=== PATIENT | female | born 1965 | race Caucasian/White ===

== ENCOUNTER → 2017-06-12 | Day surgery (SDC) | payer OTHER ==
[2017-06-11 12:16] LABS: BASOPHILS # (AUTO) 0.1 (0.0-0.1); BASOPHILS % 1.4 % (0.0-1.0); HEMATOCRIT 41.3 % (34.2-44.1); HEMOGLOBIN 14.2 g/dL (12.0-16.0); LYMPHOCYTES # (AUTO) 2.2 (1.0-3.2); LYMPHOCYTES % 44.1 % (18.0-39.1); MEAN CORPUSCULAR HEMOGLOBIN 31.4 pg (28-32); MEAN CORPUSCULAR HGB CONC 34.4 g/dL (31-35); MEAN CORPUSCULAR VOLUME 91.4 fL (81-99); MONOCYTES # (AUTO) 0.4 (0.2-0.8); MONOCYTES % 8.9 % (4.4-11.3); NEUTROPHILS # (AUTO) 2.3 (2.1-6.9); NEUTROPHILS % 45.4 % (38.7-80.0); PLATELET COUNT 285 x10e3/uL (140-360); RED BLOOD COUNT 4.52 x10e6/uL (3.6-5.1); RED CELL DISTRIBUTION WIDTH 11.8 % (11.7-14.4)
[2017-06-11 12:27] LABS: ANION GAP 14.2 mmol/L (8-16); BLOOD UREA NITROGEN 10 mg/dL (7-26); BUN/CREATININE RATIO 14 (6-25); CALCIUM 10.2 mg/dL (8.4-10.2); CARBON DIOXIDE 26 mmol/L (22-29); CHLORIDE 103 mmol/L (98-107); CREATININE, SERUM 0.69 mg/dL (0.57-1.11); EST GLOMERULAR FILTRATION RATE > 60 ML/MIN (60-); GLUCOSE 92 mg/dL (74-118); POTASSIUM 4.2 mmol/L (3.5-5.1); SODIUM 139 mmol/L (136-145)
[~2017-06-12] MED LIST: ADVIL PO; BELLADONNA/OPIUM 60 MG SUPP PR ONE; DEXAMETHASONE SOD PHOS INJ 4 MG/ML VIAL ONE; FENTANYL CITRATE/PF 100MCG/2 ML INJ ONE; GENTAMICIN 80MG/NS 100 ML 100 ML IV ONE; IBUPROFEN PO; IOPAMIDOL 610MG/1ML 300 MG/ML VIAL IV ONE; LEVOFLOXACIN 500MG/D5W 100ML 100 ML IV ONE; LIDOCAINE HCL 2% LOCAL INJ 5 ML SDV VIAL INJ ONE; MIDAZOLAM HCL 2 MG/2 ML VIAL ONE; NORCO 10MG-325MG1 EA PO; NYQUIL D COLD177 ML; ONDANSETRON HCL INJ 2 MG/ML VIAL ONE; OXYTROL1 EA TOP; PROPOFOL IV EMULSION 10 MG/ML 20 ML VIAL ONE; RELIEF FACTOR PO; SEVOFLURANE INHAL SOLN 250 ML PEN BTL ONE; TYLENOL; VICODIN; Z QUIL PO
--- NOTE | 2017-06-12 07:48 | Diagnostic Imaging Report ---
PROCEDURE:ABDOMEN-1VIEW (KUB) TECHNIQUE:Supine AP abdomen totaling 3 radiographs INDICATION:Preoperative evaluation for stent manipulation. COMPARISON:[facility], DX, RETROGRADE PYELOGRAM, 08/17/2016, 7:07. FINDINGS: See conclusion. CONCLUSION: 1. 2 right double-J ureteral stents with loop formed in the urinary bladder and renal pelvis. No stent encrustation. 2. No evidence of renal stone or ureteral calcification. 3. No evidence of organomegaly or ascites. 4. Right lower quadrant stimulation device. Dictated by: Robin Haas M.D. on 06/12/2017 at 7:56 Electronically approved by: Robin Haas M.D. on 06/12/2017 at 7:56
--- NOTE | 2017-08-13 06:20 | Operative Report ---
DATE OF PROCEDURE: June 12, 2017 PREOPERATIVE DIAGNOSES 1. Right ureteral stricture. 2. Right hydronephrosis due to stricture. 3. Two right-sided indwelling ureteral stents. 4. History of urolithiasis. 5. Atrophic (senile) vaginitis. POSTOPERATIVE DIAGNOSES OPERATIONS PERFORMED 1. Cystourethroscopy with complicated removal of 2 separate right-sided indwelling ureteral stents (separate procedure performed for the diagnosis of stents done with separate scope). 2. Cystourethroscopy with calibration and dilation of right ureteral stricture (separate procedure performed for the diagnosis of stricture). 3. Urological services for supervision and interpretation of stricture dilation. 4. Cystourethroscopy with insertion of 2 separate right-sided indwelling ureteral stents (separate procedure performed to relieve the hydronephrosis). 5. Interpretation of retrograde ureteropyelography. 6. Supervision of fluoroscopy. No radiologist present. 7. Pelvic examination under anesthesia. 8. Cystourethroscopy with left ureteral catheterization and retrograde ureteropyelography (separate procedure performed for the history of urolithiasis). ANESTHESIA: General. COMPLICATIONS: None. 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 The patient has had chronic hydronephrosis and is due for stent change. She is aware the risks of bleeding, infection, injury to adjacent structures, need for additional procedures, and elected proceed. OPERATIVE PROCEDURE IN DETAIL: Informed consent was verified. Conchita Marroquin was properly identified and taken to the operating room and placed on the cystoscopy table in the supine position. Anesthesia was uneventfully begun. The patient was then carefully and gently repositioned in the dorsal lithotomy position with all pressure points well-padded. Her genitalia were prepared and draped in the usual sterile fashion. The 22.5-Sudanese cystoscope sheath with obturator in place was atraumatically inserted into the patient's urethra and the bladder was drained. Panendoscopy of the urinary bladder revealed 2 stents emerging from the right ureteral orifice that were minimally encrusted. There are no suspicious lesions. Mild erythema was noted in the region around where the stents rested. A guidewire was then placed into the right ureter, and was only able to be advanced partially and not past the ureteral stricture. We grasped the stents and extracted them atraumatically and discarded them. The guidewire was then able to pass into the level of the patient's kidney. A double lumen ureteral catheter was utilized as a coaxial dilator sheath. It was gently passed over the guidewire to the level of the proximal ureter. Thus, we dilated the ureteral stricture. Contrast was injected and then a secondary guidewire was placed. With cystoscopic and fluoroscopic guidance, 2 separate indwelling ureteral stents were placed on the right hand side. Both coiled in the patient's kidney, as well as the patient's bladder. The retaining sutures were removed. A ureteral catheter was used to cannulate the left ureter and retrograde ureteropyelograms were performed. Interpretation of retrograde ureteropyelography. Contrast was instilled in a retrograde fashion bilaterally. The left side was unremarkable. There were no tumors. No stones. No diverticula. Unobstructed drainage was observed fluoroscopically. The InterStim neurostimulator could be seen in the right S3 region. The right side was initially consistent with hydroureteronephrosis, but with placement of the new stents, there was almost immediate decompression of the collecting system on the right hand side. The patient's bladder was then drained. The cystoscope was withdrawn. Pelvic examination under anesthesia revealed atrophic vaginitis. No abnormal palpable pelvic masses could be appreciated. There were no obvious mucosal lesions. The patient was uneventfully reversed from anesthesia and taken to the recovery room in stable condition. There no complications to the procedure. The patient tolerated the procedure well. Explicit postoperative instructions were given. Will follow the patient up in the office at which point in time we will check the impedance over InterStim implant and reprogram it as needed. Job#: [id number] [place]
== END | disposition home or self-care (01) ==
LOC: OR 07:47
PROVIDERS: ATTEND Urology
DX: N13.1 Hydronephrosis with ureteral stricture, not elsewhere classified (principal); Z46.6 Encounter for fitting and adjustment of urinary device; N95.2 Postmenopausal atrophic vaginitis; Z01.810 Encounter for preprocedural cardiovascular examination; Z01.812 Encounter for preprocedural laboratory examination; Z87.442 Personal history of urinary calculi; Z85.41 Personal history of malignant neoplasm of cervix uteri
CPT/HCPCS: 36415; 52332; 52341; 74000; 74420; 80048; 83970; 84550; 85025; 87086; 93005; C1874; J1100; J1580; J1956; J2001; J2250; J2405; Q9967; C2617

== ENCOUNTER → 2018-04-02 | Day surgery (SDC) | payer OTHER ==
[2018-04-01 13:56] LABS: BASOPHILS # (AUTO) 0.1 (0.0-0.1); BASOPHILS % 1.5 % (0.0-1.0); HEMATOCRIT 40.2 % (34.2-44.1); HEMOGLOBIN 13.4 g/dL (12.0-16.0); LYMPHOCYTES # (AUTO) 1.8 (1.0-3.2); LYMPHOCYTES % 38.9 % (18.0-39.1); MEAN CORPUSCULAR HEMOGLOBIN 31.9 pg (28-32); MEAN CORPUSCULAR HGB CONC 33.3 g/dL (31-35); MEAN CORPUSCULAR VOLUME 95.7 fL (81-99); MONOCYTES # (AUTO) 0.5 (0.2-0.8); NEUTROPHILS # (AUTO) 2.2 (2.1-6.9); NEUTROPHILS % 49.4 % (38.7-80.0); PLATELET COUNT 271 x10e3/uL (140-360); RED CELL DISTRIBUTION WIDTH 11.7 % (11.7-14.4)
[2018-04-01 14:14] LABS: ANION GAP 18.3 mmol/L (8-16); BLOOD UREA NITROGEN 6 mg/dL (7-26); BUN/CREATININE RATIO 9 (6-25); CALCIUM 10.1 mg/dL (8.4-10.2); CARBON DIOXIDE 25 mmol/L (22-29); CHLORIDE 104 mmol/L (98-107); CREATININE, SERUM 0.67 mg/dL (0.57-1.11); EST GLOMERULAR FILTRATION RATE > 60 ML/MIN (60-); GLUCOSE 98 mg/dL (74-118); POTASSIUM 4.3 mmol/L (3.5-5.1); SODIUM 143 mmol/L (136-145)
[~2018-04-02] MED LIST changes: -BELLADONNA/OPIUM 60 MG SUPP PR ONE; +CEFTRIAXONE SOD 1 GM VIAL ONE; -GENTAMICIN 80MG/NS 100 ML 100 ML IV ONE; +GENTAMICIN 80MG/NS 100 ML 200 ML IV ONE; -LEVOFLOXACIN 500MG/D5W 100ML 100 ML IV ONE; +ROCURONIUM BROMIDE 10 MG/ML 5ML VIAL ONE
--- OUTSIDE RECORDS SUMMARY | 2018-04-02 09:06 | XMS REPORT ---
Author Author [facility] Address Unknown Phone Unavailable Care Team Providers Care Clinical Documentation Consultant Name Role Phone TYSHAWN DING Unavailable Unavailable Problems This patient has no known problems. Allergies, Adverse Reactions, Alerts This patient has no known allergies or adverse reactions. Medications This patient has no known medications. Results Test Description Test Time Test Comments Text Results Atomic Results Result Comments ABDOMEN-1VIEW (KUB) [place] [address] Patient Name: ZHANG MCRBIDE MR #: [id number] : 1965 Age/Sex: 51/F Req #: [id number] Adm Physician: Ordered by: TYSHAWN DING MD Report #: [id number] Location: OR Room/Bed: Procedure: [id number] DX/ABDOMEN-1VIEW (KUB) Exam Date: 06/12/17 Exam Time: 724 REPORT STATUS: Signed PROCEDURE: ABDOMEN-1VIEW (KUB) TECHNIQUE: Supine AP abdomen totaling 3 radiographs INDICATION: Preoperative evaluation for stent manipulation. COMPARISON: [facility], DX, RETROGRADE PYELOGRAM, 08/17/2016, 7:07. FINDINGS: See conclusion. CONCLUSION: 1. 2 right double-J ureteral stents with loop formed in the urinary bladder and renal pelvis. No stent encrustation. 2. No evidence of renal stone or ureteral calcification. 3. No evidence of organomegaly or ascites. 4. Right lower quadrant stimulation device. Dictated by: Renee Haas M.D. on 06/12/2017 at 7:56 Electronically approved by: Renee Haas M.D. on 06/12/2017 at 7:56 Dictated By: RENEE HAAS MD 5 Transcribed B y: INFCE on 06/12/17755 COPY TO: TYSHAWN DING MD
--- NOTE | 2018-04-02 10:23 | Diagnostic Imaging Report ---
PROCEDURE:X-RAY ABDOMEN - KUB COMPARISON:06/12/2017. INDICATIONS:PREOPERATIVE XRAY FOR STENT REMOVAL FINDINGS: 2 adjacent right internal ureteral stents are again noted. The proximal locking loops project over the expected region of the right renal pelvis. The distal locking loops project over the pelvis to the right of the midline. No suspicious calcifications project over the renal shadows or expected ureteral courses. Multiple pelvic phleboliths. Atherosclerotic vascular calcifications. Sacral stimulator device is unchanged in position. Bowel gas pattern is nonobstructive. Regional skeletal structures are intact. CONCLUSION: Right internal ureteral stents appropriately positioned without evidence of encrustation. No plain film evidence of urolithiasis. Dictated by: Law Jorge M.D. on 04/02/2018 at 10:31 Electronically approved by: Law Jorge M.D. on 04/02/2018 at 10:31
[2018-04-02 12:07] VITALS: BP 121/73
--- NOTE | 2018-05-22 00:45 | Operative Report ---
DATE OF PROCEDURE: April 02, 2018 PREOPERATIVE DIAGNOSES 1. Right ureteral stricture. 2. Right hydronephrosis due to stricture. 3. Right indwelling ureteral stents x2. 4. Atrophic (senile) vaginitis. POSTOPERATIVE DIAGNOSIS: OPERATIONS PERFORMED 1. Cystourethroscopy with complicated removal of right indwelling ureteral stents (separate procedure performed for the diagnosis of stents). 2. Right cystourethroscopy with dilation of right ureteral stricture (separate procedure performed for the diagnosis of stricture). 3. Urological services for supervision and interpretation of stricture dilation. 4. Cystourethroscopy with insertion of 2 separate right-sided indwelling ureteral stents (separate procedure performed for the diagnosis of the hydronephrosis). 5. Interpretation of retrograde ureteropyelography. 6. Supervision of fluoroscopy. No radiologist present. 7. Pelvic examination under anesthesia. ANESTHESIA: General. COMPLICATIONS: None. CLINICAL SUMMARY: Conchita Marroquin is a 52-year-old woman with complicated urological history. Please refer to prior dictations for more detail. The patient has the preoperative diagnoses above and is brought for the above procedures. She is aware of the risks of bleeding, infection, injury to adjacent structures, need for additional procedures, and she understands she has indwelling ureteral stents that require regular replacement. She understood these risks and elected to proceed. OPERATIVE PROCEDURE IN DETAIL: Informed consent was verified. Conchita Marroquin was properly identified, taken to the operating room, placed on the cystoscopy table in a supine position. Anesthesia was uneventfully begun. The patient was then carefully and gently re-positioned in the dorsal lithotomy position with all pressure points well padded. Her genitalia were prepared and draped in usual sterile fashion. The 22.5-Hungarian cystoscope sheath was inserted in patient's urethra and bladder was drained. Panendoscopy of the urinary bladder revealed no suspicion mucosal lesions. No tumors, no stones, and no diverticula. There were heavy trabeculations noted and there was blanching due to radiation damage. Two stents were emerging from the right ureteral orifice which was laterally and cephalad displaced. A guidewire was then placed alongside one of the stents and up into the ureter and guided to the level of the patient's kidney. The stents were then each grasped and each discarded. The double-lumen ureteral catheter was then placed over the guidewire and utilized as a coaxial dilator sheath. It was placed up to the level of the patient's kidney with some degree of resistance of the distal ureter. Thus, we dilated. We obtained clear hydronephrotic drip. Contrast was injected. A secondary guidewire was placed. With cystoscopic and fluoroscopic guidance, 2 separate indwelling ureteral stents were placed on the right side, coiled in the patient's kidney as well as the patient's bladder. The retaining sutures were removed. Panendoscopy of the urinary bladder revealed some fine sand within the bladder as a result of changing the stents and extruding this fine sand off of these older stents. Interpretation of retrograde ureteropyelography: Contrast was instilled in retrograde fashion over the right hand side. The InterStim lead appeared to be positioned appropriately in the AP plane. There was chronic-appearing hydronephrosis. The stents were in good position, coiled in the patient's kidney as well as the patient's bladder at the end of the case. There was a dilation of the ureter down to the level of the stricture. The new stents were in good position at the end of the case. The patient's bladder was then drained. The cystoscope was withdrawn. Pelvic examination under anesthesia revealed a foreshortened vagina with severe vaginal wall atrophy. No abnormal palpable pelvic masses could be appreciated. The patient was then uneventfully reversed from anesthesia and taken to the recovery room in stable condition. Explicit postop instructions were given. We will follow the patient up in the office at which point in time will undergo InterStim impedance testing. Job#: [id number]
== END | disposition home or self-care (01) ==
LOC: OR 09:00
PROVIDERS: ATTEND Urology
DX: N13.1 Hydronephrosis with ureteral stricture, not elsewhere classified (principal); Z46.6 Encounter for fitting and adjustment of urinary device; Z96.0 Presence of urogenital implants; N95.2 Postmenopausal atrophic vaginitis; N32.89 Other specified disorders of bladder; Z88.0 Allergy status to penicillin; Z01.810 Encounter for preprocedural cardiovascular examination; Z01.812 Encounter for preprocedural laboratory examination; Z85.41 Personal history of malignant neoplasm of cervix uteri; Z92.3 Personal history of irradiation
CPT/HCPCS: 36415; 52332; 52341; 74420; 80048; 85025; 93005; C1758; C2617; J0696; J1100; J1580; J2001; J2250; J2405; J2704; Q9967; 74018

== ENCOUNTER 2018-09-29 06:43 | Observation (INO) | payer OTHER ==
[~2018-09-29] VITALS: Ht 162.6 cm; Wt 59.0 kg
[~2018-09-29 06:43] MED LIST changes: -CEFTRIAXONE SOD 1 GM VIAL ONE; -DEXAMETHASONE SOD PHOS INJ 4 MG/ML VIAL ONE; -FENTANYL CITRATE/PF 100MCG/2 ML INJ ONE; -GENTAMICIN 80MG/NS 100 ML 200 ML IV ONE; -IOPAMIDOL 610MG/1ML 300 MG/ML VIAL IV ONE; -LIDOCAINE HCL 2% LOCAL INJ 5 ML SDV VIAL INJ ONE; -MIDAZOLAM HCL 2 MG/2 ML VIAL ONE; -ONDANSETRON HCL INJ 2 MG/ML VIAL ONE; -PROPOFOL IV EMULSION 10 MG/ML 20 ML VIAL ONE; -ROCURONIUM BROMIDE 10 MG/ML 5ML VIAL ONE; -SEVOFLURANE INHAL SOLN 250 ML PEN BTL ONE
[2018-09-29] MEDS ORDERED: SODIUM CHLORIDE 0.9% 1000ML 1,000 ML IV STA (06:56)
[2018-09-29 07:39] LABS: BASOPHILS # (AUTO) 0.1 (0.0-0.1); BASOPHILS % 1.3 % (0.0-1.0); EOSINOPHILS # (AUTO) 0.1 (0.0-0.4); EOSINOPHILS % 2.7 % (0.0-6.0); HEMATOCRIT 40.6 % (34.2-44.1); HEMOGLOBIN 13.4 g/dL (12.0-16.0); LYMPHOCYTES # (AUTO) 2.1 (1.0-3.2); MEAN CORPUSCULAR HEMOGLOBIN 31.7 pg (28-32); MONOCYTES # (AUTO) 0.5 (0.2-0.8); MONOCYTES % 10.2 % (4.4-11.3); NEUTROPHILS # (AUTO) 1.7 (2.1-6.9); NEUTROPHILS % 38.6 % (38.7-80.0); PLATELET COUNT 295 x10e3/uL (140-360); RED BLOOD COUNT 4.23 x10e6/uL (3.6-5.1); RED CELL DISTRIBUTION WIDTH 12.2 % (11.7-14.4)
[2018-09-29 07:55] LABS: CLARITY,URINE HAZY (CLEAR); COLOR,URINE YELLOW (YELLOW); LEUKOCYTE ESTERASE ,URINE TRACE (NEGATIVE); NITRITE,URINE NEGATIVE (NEGATIVE); PROTEIN,URINE DIPSTICK NEGATIVE (NEGATIVE)
[2018-09-29 07:56] LABS: ALANINE AMINOTRANSFERASE 32 IU/L (0-55); ALBUMIN 3.8 g/dL (3.5-5.0); ALBUMIN/GLOBULIN RATIO 1.4 (0.8-2.0); ALKALINE PHOSPHATASE 68 IU/L (40-150); ANION GAP 11.6 mmol/L (8-16); BLOOD UREA NITROGEN 7 mg/dL (7-26); BUN/CREATININE RATIO 11 (6-25); CALCIUM 9.9 mg/dL (8.4-10.2); CARBON DIOXIDE 25 mmol/L (22-29); CHLORIDE 104 mmol/L (98-107); CREATININE, SERUM 0.66 mg/dL (0.57-1.11); EST GLOMERULAR FILTRATION RATE > 60 ML/MIN (60-); GLUCOSE 104 mg/dL (74-118); MAGNESIUM 2.1 MG/DL (1.3-2.1); POTASSIUM 3.6 mmol/L (3.5-5.1); SODIUM 137 mmol/L (136-145)
[2018-09-29 07:56] LABS: BILIRUBIN,URINE NEGATIVE (NEGATIVE); KETONES,URINE NEGATIVE (NEGATIVE); URINE UROBILINOGEN 0.2 mg/dL (0.2 - 1)
--- NOTE | 2018-09-29 08:05 | Diagnostic Imaging Report ---
EXAM: CT Abdomen and Pelvis WITHOUT contrast INDICATION: Stone protocol. COMPARISON: None. TECHNIQUE: Abdomen and pelvis were scanned utilizing a multidetector helical scanner from the lung base to the pubic symphysis without administration of IV contrast. Absence of intravenous contrast decreases sensitivity for detection of focal lesions and vascular pathology. Coronal and sagittal reformations were obtained. Routine protocol was performed. IV CONTRAST: None. ORAL CONTRAST: Water RADIATION DOSE: Total DLP: 217.4 mGy*cm Estimated effective dose: (DLP x 0.015 x size factor) mSv COMPLICATIONS: None FINDINGS: LOWER THORAX: Bilateral fat-containing Bochdalek hernias. HEPATOBILIARY: No focal hepatic lesions. No biliary ductal dilation. GALLBLADDER: Decompressed. No radio-opaque stones or sludge. No wall thickening. SPLEEN: No splenomegaly. PANCREAS: Limited evaluation without definite abnormality. ADRENALS: No adrenal nodules. KIDNEYS/URETERS: No hydronephrosis. No cystic or solid mass lesions. No stones. There are 2 right internal ureteral stents with the proximal pigtails in the renal pelvis and distal pigtails in the bladder. GI TRACT: No abnormal distention, wall thickening, or evidence of bowel obstruction. Appendix is not clearly identified. There is however no fat stranding or adenopathy in the right lower quadrant to suggest appendicitis. There is an anastomosis at the sigmoid colon. PELVIC ORGANS/BLADDER: The bladder is unremarkable in appearance. Calcified pelvic phleboliths. Radiation fiducial markers in the pelvis. LYMPH NODES: No lymphadenopathy. VESSELS: There are scattered atherosclerotic calcifications in the aorta and branch vessels. PERITONEUM / RETROPERITONEUM: No free air or fluid. BONES: Unremarkable. SOFT TISSUES: Right-sided sacral spinal stimulator. IMPRESSION: No CT evidence of renal or ureteral stone. Two right-sided internal ureteral stents in place as above. Appendix is not clearly identified, however there are no inflammatory changes in the right lower quadrant to suggest appendicitis. Signed by: Dr. La Josue MD on 09/29/2018 8:02 AM
[2018-09-29 08:09] LABS: EPITHELIAL CELLS,URINE MODERATE /LPF; WBC,URINE (MAN) 0-5 /HPF (0-5)
--- NOTE | 2018-09-29 08:09 | Diagnostic Imaging Report ---
Exam: KUB- two views Clinical History: Evaluate two right ureteral stents. Comparison: None. Findings: Two right-sided internal ureteral stents with proximal pigtails overlying the expected location of the right renal pelvis and the distal pigtails overlying the bladder. Right-sided sacral spinal stimulator. Surgical clips project over the pelvis. Nonobstructive bowel gas pattern. No acute osseous abnormality. Impression: No acute radiographic abnormality. Unremarkable position of two right ureteral stents. Signed by: Dr. La Josue MD on 09/29/2018 8:06 AM
[2018-09-29] MEDS ORDERED: BELLADONNA/OPIUM 30 MG SUPP RC ONE (09:00)
[2018-09-29] MEDS ORDERED: SODIUM CHLORIDE 0.9% 1000ML 1,000 ML IV SCH (10:34)
[2018-09-29] MEDS ORDERED: ONDANSETRON HCL INJ 2MG/ML 2ML 2 MG/ML VIAL IV PRN (10:45)
[2018-09-29] MEDS ORDERED: HYDROMORPHONE 2MG/ML 2 MG/ML ML IV ONE (11:00)
[2018-09-29] MEDS ORDERED: ONDANSETRON HCL INJ 2MG/ML 2ML 2 MG/ML VIAL IV ONE (11:00)
--- NOTE | 2018-09-29 11:10 | NUR ---
rec'd report in walking rounds with ambar fernandez
--- NOTE | 2018-09-29 11:10 | NUR ---
Walking rounds with KATINA Haywood. Patient in no distress at this time.
[2018-09-29] MEDS ORDERED: GABAPENTIN 100 MG CAP PO SCH ×2 (15:00→21:00)
--- NOTE | 2018-09-29 16:20 | NUR ---
patient arrived on unit via stretcher, alert and oriented. koffi fisher within reach and bed in lowest position.
[2018-09-29 16:30] VITALS: BP 144/80
[2018-09-29 16:32] VITALS: BP 144/80
[2018-09-29] MEDS: HYDROMORPHONE 2MG/ML 2 MG/ML ML IV PRN ×2 (17:45→20:37)
[2018-09-29 20:00] VITALS: BP 149/81
--- NOTE | 2018-09-29 20:00 | NUR ---
PT IN BED, INITIAL ASSESSMENT COMPLETE, PT STATES PAIN 8/10 TO RIGHT LOWER GROIN, BURNING COMES AND GOES, INTENSE FOR A MOMENT, AT BEDSIDE, CALL LIGHT IN REACH, VS STABLE, NO OTHER NEEDS, IV INFUSING
[2018-09-29] MEDS: GABAPENTIN 300 MG CAP PO SCH (20:36)
--- NOTE | 2018-09-29 23:39 | History and Physical ---
The patient is a 53-year-old with a history of right upper and lower quadrant pain. HISTORY OF PRESENT ILLNESS: Ms. Marroquin with a history of uterine cancer status post brachytherapy and radiation therapy and resection of the bowel, was in usual state of health until the patient about a week to two, started to have some pain which was intensified on movement and pain is described as 10/10. The patient's pain is intractable enough to be sent to emergency room. The patient is here for pain control and also for rule out ureteral etiology of the pain. PAST MEDICAL HISTORY: History of radiation therapy for uterine cancer. The patient had also history of radiation cystitis, urethral strictures, and also history of colon resection status post radiation. The patient has had multiple stent replacement for the same. MEDICATIONS: The patient takes her ibuprofen. The patient also takes Tylenol No.3, but she actually borne through the last one week 30 tablets, which usually does not take place. PAST SURGICAL HISTORY: As mentioned above. ALLERGIES: ALLERGY TO PENICILLIN. SOCIAL HISTORY: No EtOH. No IV drug abuse. No smoking. REVIEW OF SYSTEMS: Negative for chest pain. No shortness of breath. Positive for nausea. No vomiting. No diarrhea. No constipation. No rectal bleeding. No hematochezia. Positive for abdominal pain as mentioned above. PHYSICAL EXAMINATION: GENERAL: The patient is alert and oriented x3, in pain, but better with Dilaudid. VITAL SIGNS: The patient's temperature is 97.6, pulse of 60, respirations of 18, blood pressure is 144/80. HEENT: Normocephalic, atraumatic. No icterus present. CVS: S1, S2 normal. Regular rate and rhythm. ABDOMEN: Nontender, nondistended. Positive for hyperesthesias and paresthesias in the right upper quadrant. The patient has tenderness in the right thoracic spine too. EXTREMITIES: No clubbing, no cyanosis, no edema. LABORATORY VALUES: White count 4.4, hemoglobin of 13.4, and hematocrit of 40.6. Chemistries all within normal limits. EGFR is above 60. Urine, trace blood and trace leukocyte esterase. Microbiology, pending urine cultures. IMAGING STUDIES: The patient had abdominal CT shows appendix is not clearly identified, however, no inflammatory changes in the right lower quadrant to suggest appendicitis. ASSESSMENT: 1. Right upper quadrant pain, probably radicular in nature. The patient will be started on gabapentin 300 mg 3 times a day. Dilaudid to control pain. 2. Intractable pain. MRI of the thoracic and lumbar spine has been ordered. The patient will again continue on hydromorphone. The patient could be discharged tomorrow after MRI depending on the findings. Further recommendation per clinical course. We will continue to monitor the patient along with Dr. Vences. MD ALEXX Reyes/MODL /[id number]
[2018-09-30] VITALS: BP 147/80
[2018-09-30 04:00] VITALS: BP 149/68
[2018-09-30] MEDS: HYDROMORPHONE 2MG/ML 2 MG/ML ML IV PRN (04:30)
[2018-09-30 05:15] LABS: BASOPHILS # (AUTO) 0.1 (0.0-0.1); BASOPHILS % 1.1 % (0.0-1.0); EOSINOPHILS # (AUTO) 0.1 (0.0-0.4); EOSINOPHILS % 2.2 % (0.0-6.0); HEMATOCRIT 34.7 % (34.2-44.1); HEMOGLOBIN 11.5 g/dL (12.0-16.0); LYMPHOCYTES # (AUTO) 2.3 (1.0-3.2); LYMPHOCYTES % 50.3 % (18.0-39.1); MEAN CORPUSCULAR HEMOGLOBIN 32.4 pg (28-32); MEAN CORPUSCULAR HGB CONC 33.1 g/dL (31-35); MEAN CORPUSCULAR VOLUME 97.7 fL (81-99); MONOCYTES # (AUTO) 0.4 (0.2-0.8); MONOCYTES % 9.2 % (4.4-11.3); NEUTROPHILS # (AUTO) 1.7 (2.1-6.9); PLATELET COUNT 240 x10e3/uL (140-360); RED BLOOD COUNT 3.55 x10e6/uL (3.6-5.1)
[2018-09-30 05:44] LABS: ANION GAP 9.8 mmol/L (8-16); BLOOD UREA NITROGEN 6 mg/dL (7-26); BUN/CREATININE RATIO 10 (6-25); CARBON DIOXIDE 26 mmol/L (22-29); CHLORIDE 107 mmol/L (98-107); CREATININE, SERUM 0.63 mg/dL (0.57-1.11); EST GLOMERULAR FILTRATION RATE > 60 ML/MIN (60-); GLUCOSE 101 mg/dL (74-118); POTASSIUM 3.8 mmol/L (3.5-5.1); SODIUM 139 mmol/L (136-145)
[2018-09-30] MEDS ORDERED: ACETAMINOPHEN 325 MG TAB PO PRN (07:00)
[2018-09-30 07:10] VITALS: BP 134/87
--- NOTE | 2018-09-30 07:11 | Progress Note ---
DATE: SUBJECTIVE: The patient has been admitted for right-sided intractable pain. The patient is currently asymptomatic. Pain has been relieved with gabapentin. The patient has pending MRI results. OBJECTIVE: VITAL SIGNS: Temperature is 97.1, pulse of 60, respirations of 22, blood pressure is 149/68, and pulse oximeter 100%. HEENT: Normocephalic and atraumatic. CVS: S1, S2 normal. ABDOMEN: Nontender and nondistended. EXTREMITIES: No clubbing, no cyanosis, no edema. ASSESSMENT: 1. Right-sided flank pain probably radicular in nature. The patient is awaiting MRI. 2. History of multiple urethral stents secondary to hydronephrosis and also for strictures. Does not look like this is urethral related. PLAN: To await MRI. Once the MRI is done, the patient can be discharged home. Gabapentin will be started 300 mg 3 times a day. The patient has been given strict advise on driving with gabapentin. Further recommendation and clinical course as an outpatient. The patient can be discharged once MRI has done. MD ZAIN ReyesJ/MODL /[id number]
[2018-09-30 07:51] VITALS: BP 134/87
[2018-09-30] MEDS: GABAPENTIN 300 MG CAP PO SCH (08:00)
[2018-09-30] MEDS ORDERED: GABAPENTIN300 MG PO (08:39)
--- NOTE | 2018-09-30 08:45 | NUR ---
patient alert and oriented. Discharge instructions given, patient verbalized understanding. IV discontinued at this time, catheter in tact and small dressing applied. Patient to be wheeled from floor to personal auto for sister to drive home.
[2018-09-30] MEDS ORDERED: ONDANSETRON HCL 4 MG ORAL DISINTEGRATING TAB PO PRN (09:00)
== END 2018-09-30 09:29 | disposition home or self-care (01) ==
LOC: ER 06:43 → ERHOLD 16:00 → IMCU 16:20
PROVIDERS: ADMIT Family Medicine; ATTEND Family Medicine
DX: R10.11 Right upper quadrant pain (principal); Z85.42 Personal history of malignant neoplasm of other parts of uterus; Z90.49 Acquired absence of other specified parts of digestive tract; Z88.0 Allergy status to penicillin; Z96.0 Presence of urogenital implants; N39.0 Urinary tract infection, site not specified; N13.30 Unspecified hydronephrosis; N32.81 Overactive bladder; R39.15 Urgency of urination; D64.9 Anemia, unspecified
CPT/HCPCS: 36415 ×2; 74018; 74176; 80048; 80053; 81001; 83735; 85025 ×2; 87086; 99284; G0378 ×2; J1170 ×2; J2405; J7030 ×2

== ENCOUNTER → 2020-10-14 | Day surgery (SDC) | payer BC, OTHER ==
[2020-10-12 11:20] LABS: BASOPHILS # (AUTO) 0.1 (0.0-0.1); BASOPHILS % 1.1 % (0.0-1.0); EOSINOPHILS # (AUTO) 0.9 (0.0-0.4); EOSINOPHILS % 12.3 % (0.0-6.0); HEMATOCRIT 38.3 % (34.2-44.1); HEMOGLOBIN 12.8 g/dL (12.0-16.0); LYMPHOCYTES # (AUTO) 1.8 (1.0-3.2); LYMPHOCYTES % 24.4 % (18.0-39.1); MEAN CORPUSCULAR HEMOGLOBIN 32.1 pg (28-32); MEAN CORPUSCULAR HGB CONC 33.4 g/dL (31-35); MONOCYTES # (AUTO) 0.5 (0.2-0.8); MONOCYTES % 6.8 % (4.4-11.3); PLATELET COUNT 344 x10e3/uL (140-360); RED BLOOD COUNT 3.99 x10e6/uL (3.6-5.1); RED CELL DISTRIBUTION WIDTH 11.6 % (11.7-14.4)
[2020-10-12 11:37] LABS: ANION GAP 14.1 mmol/L (8-16); BLOOD UREA NITROGEN 8 mg/dL (7-26); BUN/CREATININE RATIO 11 (6-25); CALCIUM 9.4 mg/dL (8.4-10.2); CARBON DIOXIDE 29 mmol/L (22-29); CHLORIDE 100 mmol/L (98-107); CREATININE, SERUM 0.75 mg/dL (0.57-1.11); EST GLOMERULAR FILTRATION RATE > 60 ML/MIN (60-); GLUCOSE 94 mg/dL (74-118); POTASSIUM 4.1 mmol/L (3.5-5.1); SODIUM 139 mmol/L (136-145)
[~2020-10-14] MED LIST changes: +B&O 60MG R/S 60 MG SUPP PR ONE; +DEXAMETHASONE SOD PHOS INJ 4 MG/ML VIAL ONE; +DIOVAN80 MG PO; +GABAPENTIN300 MG PO; +GENTAMICIN 80MG/NS 100 ML 200 ML IV ONE; +IOPAMIDOL 300MG/ML 50ML INFUS..BTL IV ONE; +LIDOCAINE HCL 2% LOCAL INJ 5 ML SDV VIAL INJ ONE; +NITROFURANTOIN100 MG PO; +ONDANSETRON HCL INJ 2MG/ML 2ML 2 MG/ML VIAL ONE; +POVIDONE IODINE 0.05% 0.05 % ML PO ONE; +PROPOFOL IV EMULSION 10 MG/ML 20 ML VIAL ONE; +SEVOFLURANE INHAL SOLN 250 ML PEN BTL ONE
[2020-10-14 11:30] VITALS: BP 113/72
== END | disposition home or self-care (01) ==
LOC: OR 07:00
PROVIDERS: ATTEND Urology
DX: N13.1 Hydronephrosis with ureteral stricture, not elsewhere classified (principal); N39.0 Urinary tract infection, site not specified; N39.41 Urge incontinence; N32.81 Overactive bladder; N95.2 Postmenopausal atrophic vaginitis; N26.9 Renal sclerosis, unspecified; Z87.442 Personal history of urinary calculi; Z88.0 Allergy status to penicillin; Z01.810 Encounter for preprocedural cardiovascular examination; Z01.812 Encounter for preprocedural laboratory examination; Z20.822 Contact with and (suspected) exposure to COVID-19; Z96.0 Presence of urogenital implants
CPT/HCPCS: 36415; 52332; 52344; 74420; 80048; 85025; 93005; C1758; C2617; J1100; J1580; J2001; J2405; J2704; Q9967; U0002

== ENCOUNTER → 2021-02-10 | Day surgery (SDC) | payer BC ==
[2021-02-08 12:26] LABS: BASOPHILS # (AUTO) 0.1 (0.0-0.1); BASOPHILS % 1.4 % (0.0-1.0); HEMATOCRIT 40.3 % (34.2-44.1); LYMPHOCYTES # (AUTO) 2.5 (1.0-3.2); LYMPHOCYTES % 39.6 % (18.0-39.1); MEAN CORPUSCULAR HEMOGLOBIN 31.3 pg (28-32); MEAN CORPUSCULAR HGB CONC 32.3 g/dL (31-35); MEAN CORPUSCULAR VOLUME 97.1 fL (81-99); MONOCYTES # (AUTO) 0.5 (0.2-0.8); NEUTROPHILS # (AUTO) 3.2 (2.1-6.9); NEUTROPHILS % 50.8 % (38.7-80.0); PLATELET COUNT 351 x10e3/uL (140-360); RED BLOOD COUNT 4.15 x10e6/uL (3.6-5.1); RED CELL DISTRIBUTION WIDTH 12.2 % (11.7-14.4)
[2021-02-08 13:01] LABS: ALBUMIN 4.3 g/dL (3.5-5.0); ANION GAP 13.9 mmol/L (8-16); CALCIUM 9.9 mg/dL (8.4-10.2); CREATININE, SERUM 0.75 mg/dL (0.57-1.11); POTASSIUM 3.9 mmol/L (3.5-5.1)
[~2021-02-10] MED LIST changes: -B&O 60MG R/S 60 MG SUPP PR ONE; +BELLADONNA/OPIUM 30 MG SUPP RC ONE; +CEFUROXIME250 MG PO; -DEXAMETHASONE SOD PHOS INJ 4 MG/ML VIAL ONE; +FENTANYL CITRATE/PF 100MCG/2 ML INJ ONE; -LIDOCAINE HCL 2% LOCAL INJ 5 ML SDV VIAL INJ ONE; -ONDANSETRON HCL INJ 2MG/ML 2ML 2 MG/ML VIAL ONE; -POVIDONE IODINE 0.05% 0.05 % ML PO ONE; -PROPOFOL IV EMULSION 10 MG/ML 20 ML VIAL ONE; -SEVOFLURANE INHAL SOLN 250 ML PEN BTL ONE
[2021-02-10 10:02] VITALS: BP 102/68
== END | disposition home or self-care (01) ==
LOC: OR 06:32
PROVIDERS: ATTEND Urology
DX: N13.1 Hydronephrosis with ureteral stricture, not elsewhere classified (principal); N39.0 Urinary tract infection, site not specified; N39.41 Urge incontinence; N32.81 Overactive bladder; N26.9 Renal sclerosis, unspecified; Z87.442 Personal history of urinary calculi; Z88.0 Allergy status to penicillin; Z01.812 Encounter for preprocedural laboratory examination; Z20.822 Contact with and (suspected) exposure to COVID-19; I10 Essential (primary) hypertension; N95.2 Postmenopausal atrophic vaginitis; Z96.0 Presence of urogenital implants
CPT/HCPCS: 36415; 52332; 52341; 74018; 74420; 80053; 85025; 87086; 93005; C1758 ×2; C1769; C2617; J1580; J3010; Q9967; U0002

== ENCOUNTER → 2021-06-02 | Day surgery (SDC) | payer BC ==
[2021-05-31 13:35] LABS: BASOPHILS # (AUTO) 0.1 (0.0-0.1); BASOPHILS % 1.4 % (0.0-1.0); HEMATOCRIT 37.3 % (34.2-44.1); LYMPHOCYTES # (AUTO) 2.1 (1.0-3.2); LYMPHOCYTES % 32.3 % (18.0-39.1); MEAN CORPUSCULAR HEMOGLOBIN 31.9 pg (28-32); MEAN CORPUSCULAR HGB CONC 32.2 g/dL (31-35); MEAN CORPUSCULAR VOLUME 99.2 fL (81-99); MONOCYTES # (AUTO) 0.4 (0.2-0.8); MONOCYTES % 6.7 % (4.4-11.3); NEUTROPHILS # (AUTO) 3.8 (2.1-6.9); NEUTROPHILS % 59.3 % (38.7-80.0); PLATELET COUNT 307 x10e3/uL (140-360); RED BLOOD COUNT 3.76 x10e6/uL (3.6-5.1); RED CELL DISTRIBUTION WIDTH 11.8 % (11.7-14.4)
[2021-05-31 13:49] LABS: ANION GAP 14.8 mmol/L (8-16); CALCIUM 9.4 mg/dL (8.4-10.2); CREATININE, SERUM 0.89 mg/dL (0.57-1.11); POTASSIUM 3.8 mmol/L (3.5-5.1)
[~2021-06-02] MED LIST changes: +DEXAMETHASONE SOD PHOS INJ 4 MG/ML SDV ONE; -GENTAMICIN 80MG/NS 100 ML 200 ML IV ONE; +KETOROLAC TROMETHAMINE 30 MG/ML VIAL ONE; +LIDOCAINE HCL 2% LOCAL INJ 5 ML SDV VIAL INJ ONE; +MIDAZOLAM HCL 2 MG/2 ML VIAL ONE; +ONDANSETRON HCL INJ 2MG/ML 2ML 2 MG/ML VIAL ONE; +PHENYLEPHRINE HCL 1% 10 MG/ML VIAL ONE; +POVIDONE IODINE 0.05% 0.05 % ML PO ONE; +PROPOFOL IV EMULSION 10 MG/ML 20 ML VIAL ONE; +SEVOFLURANE INHAL SOLN 250 ML PEN BTL ONE; +VITAMIN C500 MG PO; +VITAMIN D PO; +ZINC PO
[2021-06-02 08:25] VITALS: BP 114/65
== END | disposition home or self-care (01) ==
LOC: OR 06:06
PROVIDERS: ATTEND Urology
DX: N13.1 Hydronephrosis with ureteral stricture, not elsewhere classified (principal); Z46.6 Encounter for fitting and adjustment of urinary device; N95.2 Postmenopausal atrophic vaginitis; Z96.82 Presence of neurostimulator; I10 Essential (primary) hypertension; M26.609 Unspecified temporomandibular joint disorder, unspecified side; Z88.0 Allergy status to penicillin; Z01.810 Encounter for preprocedural cardiovascular examination; Z01.812 Encounter for preprocedural laboratory examination; Z20.822 Contact with and (suspected) exposure to COVID-19; Z79.899 Other long term (current) drug therapy; Z85.41 Personal history of malignant neoplasm of cervix uteri; Z92.3 Personal history of irradiation
CPT/HCPCS: 36415; 74420; 80048; 85025; 93005; C1758; C1769; C2617; J1100; J1885; J2001; J2250; J2370; J2405; J3010; U0002

== ENCOUNTER 2021-07-28 16:45 | Observation (INO) | payer BC ==
[~2021-07-28] VITALS: Ht 162.6 cm; Wt 59.0 kg
[~2021-07-28 16:45] MED LIST changes: -BELLADONNA/OPIUM 30 MG SUPP RC ONE; -DEXAMETHASONE SOD PHOS INJ 4 MG/ML SDV ONE; -FENTANYL CITRATE/PF 100MCG/2 ML INJ ONE; -IOPAMIDOL 300MG/ML 50ML INFUS..BTL IV ONE; -KETOROLAC TROMETHAMINE 30 MG/ML VIAL ONE; -LIDOCAINE HCL 2% LOCAL INJ 5 ML SDV VIAL INJ ONE; -MIDAZOLAM HCL 2 MG/2 ML VIAL ONE; -ONDANSETRON HCL INJ 2MG/ML 2ML 2 MG/ML VIAL ONE; -PHENYLEPHRINE HCL 1% 10 MG/ML VIAL ONE; -POVIDONE IODINE 0.05% 0.05 % ML PO ONE; -PROPOFOL IV EMULSION 10 MG/ML 20 ML VIAL ONE; -SEVOFLURANE INHAL SOLN 250 ML PEN BTL ONE
[2021-07-28] MEDS ORDERED: PIPERACILLIN/TAZOBACTAM 3.375 GM in SODIUM CHLORIDE 0.9% 50ML 50 ML IV SCH (17:45)
[2021-07-28 18:14] LABS: BASOPHILS % 0.4 % (0.0-1.0); HEMATOCRIT 35.6 % (34.2-44.1); HEMOGLOBIN 11.7 g/dL (12.0-16.0); LYMPHOCYTES # (AUTO) 1.6 (1.0-3.2); LYMPHOCYTES % 14.6 % (18.0-39.1); MEAN CORPUSCULAR HGB CONC 32.9 g/dL (31-35); MEAN CORPUSCULAR VOLUME 97.3 fL (81-99); MONOCYTES # (AUTO) 1.4 (0.2-0.8); MONOCYTES % 12.8 % (4.4-11.3); NEUTROPHILS # (AUTO) 7.9 (2.1-6.9); NEUTROPHILS % 71.7 % (38.7-80.0); PLATELET COUNT 289 x10e3/uL (140-360); RED BLOOD COUNT 3.66 x10e6/uL (3.6-5.1); RED CELL DISTRIBUTION WIDTH 11.5 % (11.7-14.4)
[2021-07-28 18:17] LABS: CLARITY,URINE SL CLOUDY (CLEAR); COLOR,URINE YELLOW (YELLOW); KETONES,URINE NEGATIVE (NEGATIVE); LEUKOCYTE ESTERASE ,URINE MODERATE (NEGATIVE); NITRITE,URINE POSITIVE (NEGATIVE); PROTEIN,URINE DIPSTICK NEGATIVE (NEGATIVE); URINE UROBILINOGEN 0.2 mg/dL (0.2 - 1)
[2021-07-28] MEDS: CEFEPIME 1 GM in SODIUM CHLORIDE 0.9% 50ML 50 ML IV SCH (18:21)
[2021-07-28 18:26] LABS: ALBUMIN 3.4 g/dL (3.5-5.0); ALBUMIN/GLOBULIN RATIO 0.9 (0.8-2.0); ANION GAP 17.1 mmol/L (8-16); CALCIUM 9.6 mg/dL (8.4-10.2); CREATININE, SERUM 0.92 mg/dL (0.57-1.11); POTASSIUM 3.1 mmol/L (3.5-5.1)
[2021-07-28 18:35] LABS: RBC,URINE 0-5 /HPF (0-5); WBC,URINE (MAN) 21-50 /HPF (0-5)
[2021-07-28 18:36] LABS: BACTERIA,URINE RARE /HPF
[2021-07-28 18:37] LABS: EPITHELIAL CELLS,URINE FEW /LPF
[2021-07-28] MEDS ORDERED: SODIUM CHLORIDE 0.9% 1000ML 1,000 ML IV SCH (18:45)
[2021-07-28 20:40] VITALS: BP 137/82
[2021-07-28 20:55] VITALS: BP 137/82
[2021-07-28] MEDS: ONDANSETRON HCL INJ 2MG/ML 2ML 2 MG/ML VIAL IV PRN (23:25)
[2021-07-29] VITALS (8 sets, daily range): BP systolic 101–124; BP diastolic 62–75
[2021-07-29] MEDS: HYDROCODONE/APAP 10MG-325MG TAB PO PRN ×2 (03:42→20:42)
[2021-07-29] MEDS: CEFEPIME 1 GM in SODIUM CHLORIDE 0.9% 50ML 50 ML IV SCH ×2 (05:28→18:00)
[2021-07-29 06:28] LABS: BASOPHILS % 0.5 % (0.0-1.0); EOSINOPHILS # (AUTO) 0.2 (0.0-0.4); EOSINOPHILS % 2.4 % (0.0-6.0); HEMATOCRIT 32.8 % (34.2-44.1); HEMOGLOBIN 10.7 g/dL (12.0-16.0); LYMPHOCYTES # (AUTO) 1.6 (1.0-3.2); LYMPHOCYTES % 21.7 % (18.0-39.1); MEAN CORPUSCULAR HEMOGLOBIN 31.6 pg (28-32); MEAN CORPUSCULAR HGB CONC 32.6 g/dL (31-35); MEAN CORPUSCULAR VOLUME 96.8 fL (81-99); MONOCYTES % 12.7 % (4.4-11.3); NEUTROPHILS # (AUTO) 4.7 (2.1-6.9); NEUTROPHILS % 61.9 % (38.7-80.0); PLATELET COUNT 289 x10e3/uL (140-360); RED BLOOD COUNT 3.39 x10e6/uL (3.6-5.1); RED CELL DISTRIBUTION WIDTH 11.3 % (11.7-14.4)
[2021-07-29 06:44] LABS: ALBUMIN 3.1 g/dL (3.5-5.0); ALBUMIN/GLOBULIN RATIO 0.9 (0.8-2.0); ANION GAP 13.9 mmol/L (8-16); CALCIUM 9.6 mg/dL (8.4-10.2); CREATININE, SERUM 0.69 mg/dL (0.57-1.11)
[2021-07-29 07:04] LABS: POTASSIUM 2.9 mmol/L (3.5-5.1)
[2021-07-29] MEDS ORDERED: POTASSIUM CHLORIDE 20 MEQ TAB CR PO ONE (08:00)
[2021-07-29] MEDS: VALSARTAN 80 MG TAB PO SCH (09:00)
[2021-07-29] MEDS: ONDANSETRON HCL INJ 2MG/ML 2ML 2 MG/ML VIAL IV PRN (18:38)
[2021-07-30 00:17] VITALS: BP 107/67
[2021-07-30 04:00] VITALS: BP 98/63
[2021-07-30] MEDS: CEFEPIME 1 GM in SODIUM CHLORIDE 0.9% 50ML 50 ML IV SCH ×2 (05:57→14:56)
[2021-07-30 06:25] LABS: BASOPHILS # (AUTO) 0.1 (0.0-0.1); BASOPHILS % 1.4 % (0.0-1.0); EOSINOPHILS # (AUTO) 0.4 (0.0-0.4); EOSINOPHILS % 7.3 % (0.0-6.0); HEMATOCRIT 34.1 % (34.2-44.1); HEMOGLOBIN 10.9 g/dL (12.0-16.0); LYMPHOCYTES # (AUTO) 2.1 (1.0-3.2); LYMPHOCYTES % 37.3 % (18.0-39.1); MEAN CORPUSCULAR HEMOGLOBIN 31.5 pg (28-32); MEAN CORPUSCULAR VOLUME 98.6 fL (81-99); MONOCYTES # (AUTO) 0.9 (0.2-0.8); MONOCYTES % 16.3 % (4.4-11.3); NEUTROPHILS # (AUTO) 2.1 (2.1-6.9); NEUTROPHILS % 36.5 % (38.7-80.0); PLATELET COUNT 335 x10e3/uL (140-360); RED BLOOD COUNT 3.46 x10e6/uL (3.6-5.1); RED CELL DISTRIBUTION WIDTH 11.4 % (11.7-14.4)
[2021-07-30 06:52] LABS: ALBUMIN 2.9 g/dL (3.5-5.0); ALBUMIN/GLOBULIN RATIO 0.9 (0.8-2.0); ANION GAP 14.5 mmol/L (8-16); CALCIUM 9.5 mg/dL (8.4-10.2); CREATININE, SERUM 0.64 mg/dL (0.57-1.11)
[2021-07-30 07:01] LABS: POTASSIUM 3.5 mmol/L (3.5-5.1)
[2021-07-30] MEDS ORDERED: POTASSIUM CHLORIDE 20 MEQ TAB CR PO STA (07:30)
[2021-07-30 08:00] VITALS: BP 122/60
[2021-07-30 08:09] VITALS: BP 98/61
[2021-07-30] MEDS: VALSARTAN 80 MG TAB PO SCH (08:40)
[2021-07-30 13:59] VITALS: BP 118/77
[2021-07-30] MEDS: ONDANSETRON HCL INJ 2MG/ML 2ML 2 MG/ML VIAL IV PRN (14:56)
== END 2021-07-30 15:51 | disposition home or self-care (01) ==
LOC: ER 17:22 → ERHOLD 18:38 → MED/SURG 20:47
PROVIDERS: ADMIT Family Medicine; ATTEND Family Medicine
DX: N13.6 Pyonephrosis (principal); N39.0 Urinary tract infection, site not specified; D64.9 Anemia, unspecified; Z20.822 Contact with and (suspected) exposure to COVID-19; I10 Essential (primary) hypertension; F41.9 Anxiety disorder, unspecified; Z96.0 Presence of urogenital implants
CPT/HCPCS: 36415 ×3; 74176; 80053 ×3; 81001; 85025 ×3; 87086; 87186; 94799 ×2; 99284; G0378 ×3; J0692 ×3; J2405 ×3; J7030; U0002

== ENCOUNTER → 2021-08-14 | Outpatient (CLI) | payer BC | LOC: MAMMO 13:47 | PROVIDERS: ATTEND Family Medicine | DX: Z12.31 Encounter for screening mammogram for malignant neoplasm of breast (principal) | CPT/HCPCS: 77067 ==

== ENCOUNTER → 2021-08-25 | Day surgery (SDC) | payer BC ==
[~2021-08-25] MED LIST changes: +GLUCAGON FOR INJ 1 MG VIAL ONE; +HYOSCYAMINE SULFATE 0.5 MG/ML INJ ONE; +MIDAZOLAM HCL 2 MG/2 ML VIAL ONE; +PROPOFOL IV EMULSION 10 MG/ML 20 ML VIAL ONE
[2021-08-25 17:15] VITALS: BP 113/75
== END | disposition home or self-care (01) ==
LOC: OR 12:40
PROVIDERS: ATTEND Internal Medicine Gastroenterology
DX: Z12.11 Encounter for screening for malignant neoplasm of colon (principal); D12.0 Benign neoplasm of cecum; D12.5 Benign neoplasm of sigmoid colon; D12.8 Benign neoplasm of rectum; K57.30 Diverticulosis of large intestine without perforation or abscess without bleeding; K62.7 Radiation proctitis; K62.89 Other specified diseases of anus and rectum; K64.8 Other hemorrhoids; I10 Essential (primary) hypertension; E78.5 Hyperlipidemia, unspecified; Z88.0 Allergy status to penicillin; Z01.812 Encounter for preprocedural laboratory examination; Z20.822 Contact with and (suspected) exposure to COVID-19; Z79.899 Other long term (current) drug therapy; Z85.41 Personal history of malignant neoplasm of cervix uteri
CPT/HCPCS: 45380; 45385; J1610; J1980; J2250; J2704; U0002; 45378; 45384

== ENCOUNTER → 2022-04-04 | Day surgery (SDC) | payer BC ==
[2022-04-02 13:06] LABS: BASOPHILS # (AUTO) 0.1 (0.0-0.1); BASOPHILS % 0.9 % (0.0-1.0); HEMATOCRIT 37.8 % (34.2-44.1); HEMOGLOBIN 12.3 g/dL (12.0-16.0); LYMPHOCYTES # (AUTO) 2.1 (1.0-3.2); LYMPHOCYTES % 21.2 % (18.0-39.1); MEAN CORPUSCULAR HGB CONC 32.5 g/dL (31-35); MEAN CORPUSCULAR VOLUME 98.4 fL (81-99); MONOCYTES # (AUTO) 0.6 (0.2-0.8); MONOCYTES % 5.8 % (4.4-11.3); NEUTROPHILS # (AUTO) 7.2 (2.1-6.9); NEUTROPHILS % 71.8 % (38.7-80.0); PLATELET COUNT 349 x10e3/uL (140-360); RED BLOOD COUNT 3.84 x10e6/uL (3.6-5.1); RED CELL DISTRIBUTION WIDTH 11.3 % (11.7-14.4)
[2022-04-02 13:18] LABS: ANION GAP 16.1 mmol/L (8-16); CALCIUM 10.5 mg/dL (8.4-10.2); CREATININE, SERUM 0.73 mg/dL (0.57-1.11); POTASSIUM 4.1 mmol/L (3.5-5.1)
[~2022-04-04] MED LIST changes: +DEXAMETHASONE SOD PHOS INJ 4 MG/ML SDV IV ONE; +FENTANYL CITRATE/PF 100MCG/2 ML INJ ONE; +GENTAMICIN 80MG/NS 100 ML 200 ML IV ONE; -GLUCAGON FOR INJ 1 MG VIAL ONE; +HYDROCODONE/APAP 7.5MG-325MG 1 EA TAB ONE; -HYOSCYAMINE SULFATE 0.5 MG/ML INJ ONE; +IOPAMIDOL 610MG/1ML 300 MG/ML VIAL IV ONE; +KETOROLAC TROMETHAMINE 30 MG/ML VIAL ONE; +LIDOCAINE HCL 2% LOCAL INJ 5 ML SDV VIAL INJ ONE; +ONDANSETRON HCL INJ 2MG/ML 2ML 2 MG/ML VIAL IV ONE; +PHENAZOPYRIDINE HCL 100 MG TAB ONE; +POVIDONE IODINE 0.05% 0.05 % ML PO ONE; +PROPOFOL IV EMULSION 10 MG/ML 20 ML VIAL IV ONE; -PROPOFOL IV EMULSION 10 MG/ML 20 ML VIAL ONE; +SEVOFLURANE INHAL SOLN 250 ML PEN BTL INH ONE
[2022-04-04 12:45] VITALS: BP 118/71
== END | disposition home or self-care (01) ==
LOC: OR 08:36
PROVIDERS: ATTEND Urology
DX: N13.1 Hydronephrosis with ureteral stricture, not elsewhere classified (principal); Z46.6 Encounter for fitting and adjustment of urinary device; N95.2 Postmenopausal atrophic vaginitis; Z96.82 Presence of neurostimulator; I10 Essential (primary) hypertension; Z88.0 Allergy status to penicillin; Z01.810 Encounter for preprocedural cardiovascular examination; Z01.812 Encounter for preprocedural laboratory examination; Z01.818 Encounter for other preprocedural examination; Z79.899 Other long term (current) drug therapy
CPT/HCPCS: 36415; 52332; 52344; 74018; 74420; 80048; 84550; 85025; 93005; C1758; C1769; C2617; J1100; J1580; J1885; J2001; J2250; J2405; J2704; J3010; Q9967

== ENCOUNTER → 2022-06-01 | Day surgery (SDC) | payer BC ==
[~2022-06-01] MED LIST changes: +ANTIBIOTIC28.4 GM PO; +Clindamycin INJ 300 MG/50 ML 50 ML IV ONE; -DEXAMETHASONE SOD PHOS INJ 4 MG/ML SDV IV ONE; +DEXAMETHASONE SOD PHOS INJ 4 MG/ML SDV ONE; +EPHEDRINE SULFATE INJ 50 MG/ML VIAL ONE; +HYDROCODON-ACE1 EA16 PO; -HYDROCODONE/APAP 7.5MG-325MG 1 EA TAB ONE; -KETOROLAC TROMETHAMINE 30 MG/ML VIAL ONE; +MACROBID 100 M100 MG PO; -MIDAZOLAM HCL 2 MG/2 ML VIAL ONE; -ONDANSETRON HCL INJ 2MG/ML 2ML 2 MG/ML VIAL IV ONE; +ONDANSETRON HCL INJ 2MG/ML 2ML 2 MG/ML VIAL ONE; -PHENAZOPYRIDINE HCL 100 MG TAB ONE; -PROPOFOL IV EMULSION 10 MG/ML 20 ML VIAL IV ONE; +PROPOFOL IV EMULSION 10 MG/ML 20 ML VIAL ONE; -SEVOFLURANE INHAL SOLN 250 ML PEN BTL INH ONE; +SEVOFLURANE INHAL SOLN 250 ML PEN BTL ONE
[2022-06-01 09:00] LABS: BASOPHILS # (AUTO) 0.1 (0.0-0.1); EOSINOPHILS # (AUTO) 0.2 (0.0-0.4); EOSINOPHILS % 3.5 % (0.0-6.0); HEMATOCRIT 40.1 % (34.2-44.1); HEMOGLOBIN 12.7 g/dL (12.0-16.0); LYMPHOCYTES % 44.3 % (18.0-39.1); MEAN CORPUSCULAR HEMOGLOBIN 32.2 pg (28-32); MEAN CORPUSCULAR HGB CONC 31.7 g/dL (31-35); MEAN CORPUSCULAR VOLUME 101.5 fL (81-99); MONOCYTES # (AUTO) 0.5 (0.2-0.8); MONOCYTES % 10.9 % (4.4-11.3); NEUTROPHILS # (AUTO) 1.8 (2.1-6.9); NEUTROPHILS % 39.3 % (38.7-80.0); PLATELET COUNT 292 x10e3/uL (140-360); RED BLOOD COUNT 3.95 x10e6/uL (3.6-5.1); RED CELL DISTRIBUTION WIDTH 11.7 % (11.7-14.4)
[2022-06-01 09:16] LABS: CALCIUM 9.8 mg/dL (8.4-10.2); CREATININE, SERUM 0.8 mg/dL (0.57-1.11)
[2022-06-01 11:30] VITALS: BP 113/69
== END | disposition home or self-care (01) ==
LOC: OR 07:43
PROVIDERS: ATTEND Urology
DX: N13.1 Hydronephrosis with ureteral stricture, not elsewhere classified (principal); Z46.6 Encounter for fitting and adjustment of urinary device; Z96.82 Presence of neurostimulator; N39.41 Urge incontinence; N39.0 Urinary tract infection, site not specified; N26.9 Renal sclerosis, unspecified; N32.89 Other specified disorders of bladder; N32.81 Overactive bladder; N20.1 Calculus of ureter; N95.2 Postmenopausal atrophic vaginitis; I10 Essential (primary) hypertension; Z88.0 Allergy status to penicillin; J30.1 Allergic rhinitis due to pollen; Z79.899 Other long term (current) drug therapy; Z87.891 Personal history of nicotine dependence
CPT/HCPCS: 36415; 52332; 52344; 74420; 80048; 85025; 87086; C1769; C2617; J1100; J1580; J2001; J2405; J2704; J3010; Q9967

== ENCOUNTER → 2022-09-28 | Day surgery (SDC) | payer BC ==
[2022-09-24 10:57] LABS: BASOPHILS # (AUTO) 0.1 (0.0-0.1); BASOPHILS % 1.3 % (0.0-1.0); HEMATOCRIT 37.8 % (34.2-44.1); HEMOGLOBIN 12.9 g/dL (12.0-16.0); LYMPHOCYTES # (AUTO) 1.8 (1.0-3.2); LYMPHOCYTES % 29.1 % (18.0-39.1); MEAN CORPUSCULAR HEMOGLOBIN 31.7 pg (28-32); MEAN CORPUSCULAR HGB CONC 34.1 g/dL (31-35); MEAN CORPUSCULAR VOLUME 92.9 fL (81-99); MONOCYTES # (AUTO) 0.4 (0.2-0.8); MONOCYTES % 6.6 % (4.4-11.3); NEUTROPHILS # (AUTO) 3.9 (2.1-6.9); NEUTROPHILS % 62.8 % (38.7-80.0); PLATELET COUNT 349 x10e3/uL (140-360); RED BLOOD COUNT 4.07 x10e6/uL (3.6-5.1); RED CELL DISTRIBUTION WIDTH 11.8 % (11.7-14.4)
[2022-09-24 11:15] LABS: ALBUMIN 4.2 g/dL (3.5-5.0); ALBUMIN/GLOBULIN RATIO 1.4 (0.8-2.0); ANION GAP 17.9 mmol/L (8-16); CALCIUM 9.8 mg/dL (8.4-10.2); CREATININE, SERUM 0.7 mg/dL (0.57-1.11); POTASSIUM 3.9 mmol/L (3.5-5.1)
[~2022-09-28] MED LIST changes: +CEFTRIAXONE 1 GM VIAL ONE; -Clindamycin INJ 300 MG/50 ML 50 ML IV ONE; -EPHEDRINE SULFATE INJ 50 MG/ML VIAL ONE; +LACTATED RINGER'S 1,000 ML ONE; +MIDAZOLAM HCL 2 MG/2 ML VIAL ONE; +PHENAZOPYRIDINE HCL 100 MG TAB ONE
[2022-09-28 09:30] VITALS: BP 129/71
== END | disposition home or self-care (01) ==
LOC: OR 06:32
PROVIDERS: ATTEND Urology
DX: N13.1 Hydronephrosis with ureteral stricture, not elsewhere classified (principal); Z46.6 Encounter for fitting and adjustment of urinary device; N95.2 Postmenopausal atrophic vaginitis; Z96.82 Presence of neurostimulator; Z01.810 Encounter for preprocedural cardiovascular examination; Z01.812 Encounter for preprocedural laboratory examination; Z01.818 Encounter for other preprocedural examination; Z79.899 Other long term (current) drug therapy
CPT/HCPCS: 36415; 52332; 52341; 72220; 74018; 74420; 80053; 85025; 87086; 87186; 93005; C1758; C1769; C1874; J0696; J1100; J1580; J2001; J2250; J2405; J2704; J3010; J7121; Q9967

== ENCOUNTER → 2024-08-19 | Day surgery (SDC) | payer BC ==
[2024-08-18 11:28] LABS: BASOPHILS # (AUTO) 0.1 (0.0-0.1); BASOPHILS % 1.1 % (0.0-1.0); EOSINOPHILS # (AUTO) 0.1 (0.0-0.4); EOSINOPHILS % 1.4 % (0.0-6.0); HEMATOCRIT 39.2 % (34.2-44.1); HEMOGLOBIN 13.3 g/dL (12.0-16.0); LYMPHOCYTES # (AUTO) 2.2 (1.0-3.2); LYMPHOCYTES % 40.3 % (18.0-39.1); MEAN CORPUSCULAR HEMOGLOBIN 32.1 pg (28-32); MEAN CORPUSCULAR HGB CONC 33.9 g/dL (31-35); MEAN CORPUSCULAR VOLUME 94.7 fL (81-99); MONOCYTES # (AUTO) 0.4 (0.2-0.8); MONOCYTES % 7.4 % (4.4-11.3); NEUTROPHILS # (AUTO) 2.7 (2.1-6.9); NEUTROPHILS % 49.6 % (38.7-80.0); PLATELET COUNT 303 x10e3/uL (140-360); RED BLOOD COUNT 4.14 x10e6/uL (3.6-5.1); RED CELL DISTRIBUTION WIDTH 11.5 % (11.7-14.4); WHITE BLOOD COUNT 5.53 x10e3/uL (4.8-10.8)
[2024-08-18 11:48] LABS: ALBUMIN 4.5 g/dL (3.5-5.0); ALBUMIN/GLOBULIN RATIO 1.5 (0.8-2.0); ANION GAP 16.7 mmol/L (8-16); BILIRUBIN,TOTAL 0.7 mg/dL (0.2-1.2); CALCIUM 10.4 mg/dL (8.4-10.2); CREATININE, SERUM 0.79 mg/dL (0.57-1.11); POTASSIUM 4.7 mmol/L (3.5-5.1); TOTAL PROTEIN 7.5 g/dL (6.5-8.1); URIC ACID 5.5 mg/dL (2.6-8.0)
[~2024-08-19] MED LIST changes: +ACETAMINOPHEN 1000 MG/100 ML 100 ML IV ONE; -CEFTRIAXONE 1 GM VIAL ONE; -GENTAMICIN 80MG/NS 100 ML 200 ML IV ONE; +GLYCOPYRROLATE INJ 0.2 MG/ML VIAL ONE; -IOPAMIDOL 610MG/1ML 300 MG/ML VIAL IV ONE; -LACTATED RINGER'S 1,000 ML ONE; -MIDAZOLAM HCL 2 MG/2 ML VIAL ONE; +MULTI-VITAMIN1 EACH PO; -PHENAZOPYRIDINE HCL 100 MG TAB ONE; +PHENYLEPHRINE HCL 1% 10 MG/ML VIAL ONE; -POVIDONE IODINE 0.05% 0.05 % ML PO ONE; +SODIUM CHLORIDE 0.9% 100 ML ONE; +VALSARTAN-HCTZ1 EACH PO
[2024-08-19] MEDS: LACTATED RINGER'S 1,000 ML ONE (05:59)
[2024-08-19] MEDS: GENTAMICIN 80MG/NS 100 ML 200 ML IV ONE (06:00)
[2024-08-19 08:21] VITALS: TEMP 98.2
[2024-08-19] MEDS: PHENAZOPYRIDINE HCL 100 MG TAB ONE (08:45)
[2024-08-19 09:25] VITALS: BP 120/77; PULSE 74; RESP 16; O2SAT 98
[2024-08-19 11:12] LABS: CALCIUM 10.5 mg/dL (8.7-10.3)
== END | disposition home or self-care (01) ==
LOC: OR 05:28
PROVIDERS: ATTEND Urology
DX: N13.1 Hydronephrosis with ureteral stricture, not elsewhere classified (principal); Z46.6 Encounter for fitting and adjustment of urinary device; N39.0 Urinary tract infection, site not specified; N95.2 Postmenopausal atrophic vaginitis; N20.0 Calculus of kidney; Z96.82 Presence of neurostimulator; I10 Essential (primary) hypertension; Z88.0 Allergy status to penicillin; Z01.810 Encounter for preprocedural cardiovascular examination; Z01.812 Encounter for preprocedural laboratory examination; Z01.818 Encounter for other preprocedural examination; Z79.899 Other long term (current) drug therapy; Z85.41 Personal history of malignant neoplasm of cervix uteri; Z92.3 Personal history of irradiation; Z87.891 Personal history of nicotine dependence
CPT/HCPCS: 36415; 52332; 52344; 74018; 74420; 80053; 83970; 84550; 85025; 87086; 93005; C1758; C2617; J0131; J1100; J1580; J2003; J2371; J2405; J2704; J3010; J7050; J7121

== ENCOUNTER → 2024-12-23 | Day surgery (SDC) | payer BC ==
[2024-12-21 14:31] LABS: BASOPHILS % 0.9 % (0.0-1.0); EOSINOPHILS % 2.3 % (0.0-6.0); LYMPHOCYTES % 30.3 % (18.0-39.1); MONOCYTES % 8.1 % (4.4-11.3); NEUTROPHILS % 58.0 % (38.7-80.0); RED CELL DISTRIBUTION WIDTH 11.9 % (11.7-14.4)
[2024-12-21 15:02] LABS: EST GLOMERULAR FILTRATION RATE 99.0 ML/MIN (>=60)
[~2024-12-23] MED LIST changes: -ACETAMINOPHEN 1000 MG/100 ML 100 ML IV ONE; +EPHEDRINE SULFATE INJ 50 MG/ML VIAL ONE; +MIDAZOLAM HCL 2 MG/2 ML VIAL ONE; +PHENAZOPYRIDINE HCL 100 MG TAB ONE; -PHENYLEPHRINE HCL 1% 10 MG/ML VIAL ONE; -SEVOFLURANE INHAL SOLN 250 ML PEN BTL ONE; -SODIUM CHLORIDE 0.9% 100 ML ONE
[2024-12-23] MEDS: GENTAMICIN 80MG/NS 100 ML 200 ML IV ONE (08:36)
[2024-12-23] MEDS: SODIUM CHLORIDE 0.9% 1000ML 1,000 ML ONE (08:36)
[2024-12-23] MEDS: FENTANYL CITRATE/PF 100MCG/2 ML INJ IV ONE (11:27)
[2024-12-23 11:55] VITALS: BP 136/74; PULSE 62; RESP 18; O2SAT 98
== END | disposition home or self-care (01) ==
LOC: OR 06:50
PROVIDERS: ATTEND Urology
DX: N13.1 Hydronephrosis with ureteral stricture, not elsewhere classified (principal); N95.2 Postmenopausal atrophic vaginitis; Z85.41 Personal history of malignant neoplasm of cervix uteri; Z92.3 Personal history of irradiation; Z87.891 Personal history of nicotine dependence; Z01.810 Encounter for preprocedural cardiovascular examination; Z01.812 Encounter for preprocedural laboratory examination
CPT/HCPCS: 36415; 52332; 52344; 74018; 74420; 80053; 85025; 87086; 93005; C2617; J1100; J1580; J2003; J2250; J2405; J2704; J3010; J7030

== ENCOUNTER → 2025-03-19 | Day surgery (SDC) | payer BC ==
[~2025-03-19] MED LIST changes: +ACETAMINOPHEN 1000 MG/100 ML 100 ML IV ONE; -EPHEDRINE SULFATE INJ 50 MG/ML VIAL ONE; +FAMOTIDINE 20 MG/2 ML VIAL IV ONE; -GLYCOPYRROLATE INJ 0.2 MG/ML VIAL ONE; -PHENAZOPYRIDINE HCL 100 MG TAB ONE; +SEVOFLURANE INHAL SOLN 250 ML PEN BTL ONE
[2025-03-19] MEDS: GENTAMICIN 80MG/NS 100 ML 200 ML IV ONE (08:04)
[2025-03-19] MEDS: LACTATED RINGER'S 1,000 ML ONE (08:04)
[2025-03-19 08:12] LABS: BASOPHILS % 0.7 % (0.0-1.0); EOSINOPHILS % 0.1 % (0.0-6.0); LYMPHOCYTES % 19.3 % (18.0-39.1); MONOCYTES % 8.8 % (4.4-11.3); NEUTROPHILS % 70.6 % (38.7-80.0); RED CELL DISTRIBUTION WIDTH 11.5 % (11.7-14.4)
[2025-03-19 08:33] LABS: EST GLOMERULAR FILTRATION RATE 102.0 ML/MIN (>=60)
[2025-03-19 11:59] VITALS: TEMP 98.2
[2025-03-19] MEDS: PHENAZOPYRIDINE HCL 100 MG TAB ONE (12:25)
[2025-03-19] MEDS: FENTANYL CITRATE/PF 100MCG/2 ML INJ ONE (12:30)
[2025-03-19 13:00] VITALS: BP 125/80; PULSE 64; RESP 17; O2SAT 100
== END | disposition home or self-care (01) ==
LOC: OR 07:07
PROVIDERS: ATTEND Urology
DX: N13.1 Hydronephrosis with ureteral stricture, not elsewhere classified (principal); N95.2 Postmenopausal atrophic vaginitis; Z46.6 Encounter for fitting and adjustment of urinary device; I10 Essential (primary) hypertension; Z88.0 Allergy status to penicillin; Z79.2 Long term (current) use of antibiotics; Z96.89 Presence of other specified functional implants; Z85.41 Personal history of malignant neoplasm of cervix uteri; Z92.3 Personal history of irradiation; Z87.891 Personal history of nicotine dependence
CPT/HCPCS: 36415; 52332; 52341; 74018; 74420; 80048; 85025; 87086; C1769; J0131; J1100; J1308; J1580; J2003; J2250; J2405; J2704; J3010; J7121